=== PATIENT | male | born 1990 | race Caucasian/White ===

== ENCOUNTER 2019-09-12 19:31 | Emergency (ER) | payer OTHER, SELFPAY ==
[2019-09-12 19:44] VITALS: BP 161/102; PULSE 98; RESP 15; TEMP 36.6; O2SAT 97
--- NOTE | 2019-09-12 19:52 | ED.DENTAL ---
HPI - Dental/Oral General Chief complaint: Dental/Oral Stated complaint: tooth pain History of Present Illness HPI Narrative: The patient presents with some a dental pain with surrounding gum inflammation with a tender right submandibular gland with some right lower jaw tenderness, is painful and tender with some chewing, currently there is no fever chills no shortness of breath no nausea vomiting. MD Complaint: tooth pain Location: Tooth # Teeth map: 1. dental pain with gum inflammation Related Data Home Medications Medication Instructions Recorded Confirmed escitalopram oxalate 10 mg PO HS 03/11/19 09/12/19 quetiapine 300 mg PO HS 03/11/19 09/12/19 quetiapine 400 mg PO HS 03/11/19 09/12/19 trazodone 100 mg PO HS 03/11/19 09/12/19 Allergies Allergy/AdvReac Type Severity Reaction Status Date / Time No Known Allergies Allergy Unverified 11/16/14 11:20 Review of Systems Review of Systems: All systems reviewed & are unremarkable except as noted in HPI and below [facility] Past Medical History Medical History Depression Exam Const: General: no acute distress and alert Orientation/consciousness: patient oriented x3 HENMT: Head: normal to inspection Other: Left upper dental tenderness with palpation with surrounding gum inflammation Eyes: Conjunctivae: conjunctivae normal Pupils: Equal, round and reactive pupils present EOM: EOMs intact bilaterally Neck: Neck: normal visual inspection Chest: Chest palpation & inspection: normal inspection of the chest Resp: Effort & Inspection: normal respiratory effort Auscultation: clear to auscultation bilaterally Cardio: Rate: regular rate Rhythm: regular rhythm GI: Auscultation: normal bowel sounds Skin: General skin exam: normal color Rashes: no rashes Neuro: General: patient oriented x3 and moves all extremities Extrem: General: normal to inspection Psych: Mental Status: mental status grossly normal Course Vital Signs Vital signs: Vital Signs Temperature 36.6 C 09/12/19 19:44 Pulse Rate 98 09/12/19 19:44 Respiratory Rate 15 09/12/19 19:44 Blood Pressure 161/102 H 09/12/19 19:44 Pulse Oximetry 97 09/12/19 19:44 Temperature 36.6 C 09/12/19 19:44 Pulse Rate 98 05/18/20 19:44 Respiratory Rate 15 09/12/19 19:44 Blood Pressure 161/102 H 09/12/19 19:44 Pulse Oximetry 97 09/12/19 19:44 Critical Care Time Critical Care Time Critical Care Time: No Discharge Plan Discharge Clinical Impression: Dental abscess, Dental caries Patient Disposition: Home, Self-Care Condition: Stable Instructions: Antibiotic Form, Dental Abscess (ED) Additional Instructions: follow-up with dentist as soon as possible for further evaluation and treatment. Take medicine as prescribed. Prescriptions: New tramadol 50 mg tablet 50 mg PO Q6H PRN (Reason: pain) Qty: 20 RF: 0 amoxicillin 500 mg tablet 500 mg PO TID Qty: 30 RF: 0 No Action quetiapine 300 mg tablet 300 mg PO HS RF: 0 trazodone 100 mg tablet 100 mg PO HS RF: 0 escitalopram oxalate 10 mg tablet 10 mg PO HS RF: 0 quetiapine 400 mg tablet 400 mg PO HS RF: 0 Follow-up/Referrals: PHYSICIAN NOT ON STAFF,NONSTAFF [Primary Care Provider] - Stand Alone Forms: Work/School Release IP Time of Disposition: :57
[2019-09-12] MEDS: AMOXICILLIN 500 MG CAPSULE PO (19:54)
[2019-09-12] MEDS: TRAMADOL HCL 50 MG TABLET PO (19:54)
[2019-09-12 19:55] VITALS: RESP 14; O2SAT 100
== END 2019-09-12 19:58 | disposition home or self-care (01) ==
PROVIDERS: Emergency Provider Emergency Medicine
DX: K04.7 Periapical abscess without sinus (principal); K02.9 Dental caries, unspecified
CPT/HCPCS: 99283; A9270

== ENCOUNTER 2019-09-23 12:16 | Emergency (ER) | payer OTHER, SELFPAY ==
[2019-09-23 12:34] VITALS: BP 152/86; PULSE 117; RESP 18; TEMP 37.2; O2SAT 95
--- NOTE | 2019-09-23 12:58 | ED.WOUNDLAC ---
HPI - Wound/Laceration General Chief Complaint: Wound/Laceration Stated Complaint: cut on left arm Time Seen by Provider: 09/23/19 12:58 Source: patient Mode of arrival: ambulatory Limitations: no limitations History of Present Illness HPI narrative: 28-year-old man comes in today complaining of laceration of left forearm. Patient states that he was carrying branches and debris and thinks he scraped against the ladder. He states he has no numbness or tingling or weakness. He has not recall his last tetanus shot. Onset (ago): hour(s) (1) Extremity Location: Left: arm Place: home Patient tetanus UTD: No Context: accidental Associated symptoms: pain Treatments prior to arrival: bandage Related Data Home Medications Medication Instructions Recorded Confirmed escitalopram oxalate 10 mg PO HS 03/11/19 09/12/19 quetiapine 300 mg PO HS 03/11/19 09/12/19 quetiapine 400 mg PO HS 03/11/19 09/12/19 trazodone 100 mg PO HS 03/11/19 09/12/19 Allergies Allergy/AdvReac Type Severity Reaction Status Date / Time No Known Allergies Allergy Unverified 11/16/14 11:20 Review of Systems Constitutional: Constitutional: Denies chills, Denies fever(s) and Denies weakness Eyes: Eyes: Denies change in vision and Denies photophobia ENT: Denies dysphagia, Denies nasal congestion and Denies sore throat Cardiovascular: Cardiovascular: Denies chest pain and Denies radiating jaw, neck or arm pain Respiratory: Respiratory: Denies cough, Denies dyspnea and Denies wheezing Gastrointestinal: Gastrointestinal: Denies nausea and Denies vomiting Musculoskeletal: Musculoskeletal: Denies arthralgias, Denies joint swelling and Denies muscle cramps Integumentary/Breasts: Skin/Breast: Denies pruritus, Denies erythema and Denies rash Neurologic: Denies vertigo, Denies dizziness and Denies syncope Psychiatric: Psychiatric: Denies anxiety and Denies depression Hematologic/Lymphatic: Hematologic/Lymphatic: Denies easy bleeding and Denies easy bruising Allergic/Immunologic: Allergic/Immunologic: Denies lip swelling and Denies wheezing PMFSH Past Medical History Medical History Depression Social History Social History Tobacco type: e-cigarettes/vaping Alcohol intake: never Substance use: never Living arrangements: with family Exam Const: General: no acute distress and alert Nutritional Appearance: well nourished Orientation/consciousness: patient oriented x3 Eyes: Conjunctivae: conjunctivae normal Pupils: Equal, round and reactive pupils present EOM: EOMs intact bilaterally Resp: Effort & Inspection: normal respiratory effort and not labored Auscultation: clear to auscultation bilaterally, no rales, no rhonchi and no wheezes Cardio: Rate: regular rate Rhythm: regular rhythm Heart sounds: no murmurs Skin: General skin exam: normal color, no jaundice and no pallor Rashes: no rashes Other: 3 x 5 cm linear laceration which is partial thickness and gaping. Are several small (=/< 1 mm) black foreign bodies in the wound. Neuro: General: patient oriented x3, moves all extremities, no meningeal signs, no focal motor deficits and CN's II-XI intact bilaterally Speech: normal speech Extrem: General: normal to inspection and no clubbing, cyanosis or edema Psych: Appearance: grossly normal and well kempt Mental Status: mental status grossly normal Affect: normal affect Attitude: cooperative Course Vital Signs Vital signs: Vital Signs Temperature 37.2 C 09/23/19 12:34 Pulse Rate 117 H 09/23/19 12:34 Respiratory Rate 18 09/23/19 12:34 Blood Pressure 152/86 H 09/23/19 12:34 Pulse Oximetry 95 09/23/19 12:34 Temperature 37.2 C 09/23/19 12:34 Pulse Rate 117 H 09/23/19 12:34 Respiratory Rate 18 09/23/19 12:34 Blood Pressure 152/86 H 09/23/19 12:34 Pulse Oximetry 95 09/23/19 12:34
[2019-09-23] MEDS: TETANUS,DIPHTHERIA,AC PERTUSSIS ADULT 0.5 ML (ADACEL) IM (13:00)
== END 2019-09-23 13:37 | disposition home or self-care (01) ==
PROVIDERS: Emergency Provider Emergency Medicine
DX: S51.812A Laceration without foreign body of left forearm, initial encounter (principal)
CPT/HCPCS: 12002; 90471; 90715; 99282; 99283

== ENCOUNTER 2019-12-06 17:39 | Emergency (ER) | payer OTHER, SELFPAY ==
--- NOTE | ~2019-12-06 | XR_ITS ---
EXAMINATION: XR chest 1V portable EXAM DATE: 12/06/2019 18:33 INDICATION: Shortness of breath, wheezing. Allergic reaction. TECHNIQUE: Portable AP frontal chest x-ray was obtained. Comparison is made to prior examination from 03/11/2019. FINDINGS: The lungs are clear. There are no pleural effusions. The cardiomediastinal silhouette is within normal limits. There is no pneumothorax suspected. The bones and soft tissues are unremarkab le. IMPRESSION: Normal chest x-ray exam. Reviewed, dictated and finalized at location A. IMPRESSION: Normal chest x-ray exam.
[2019-12-06 17:53] VITALS: BP 130/31; PULSE 117; RESP 18; TEMP 37; O2SAT 98
[2019-12-06 17:58] VITALS: PULSE 107; RESP 22
[2019-12-06] MEDS: IPRATROPIUM 0.5 MG/ALBUTEROL SULFATE 2.5 MG AMPUL.NEB 3 ML (17:59)
[2019-12-06 18:05] VITALS: PULSE 112; RESP 22
--- NOTE | 2019-12-06 18:05 | ED.GENADULT ---
HPI - General Adult General Chief complaint: Allergic Reaction Stated complaint: trouble breathing Source: patient Mode of arrival: ambulatory Limitations: no limitations History of Present Illness HPI narrative: 29-year-old developed tightness and soreness in the back of his throat this morning. This is resolved but this afternoon he has developed tightness in his chest and wheezing. He had childhood asthma but no problems with wheezing since then. He developed a rash on his back, chest & abdomen yesterday which persists. It is minimally pruritic. He denies swelling of his lips or tongue. No nausea, vomiting, diarrhea or lightheadedness. No history of allergic reactions. He has had no recent exposures to unusual inhalants. Related Data Home Medications Medication Instructions Recorded Confirmed escitalopram oxalate 10 mg PO HS 03/11/19 12/06/19 quetiapine 300 mg PO HS 03/11/19 12/06/19 quetiapine 400 mg PO HS 03/11/19 12/06/19 trazodone 100 mg PO HS 03/11/19 12/06/19 Allergies Allergy/AdvReac Type Severity Reaction Status Date / Time No Known Allergies Allergy Unverified 11/16/14 11:20 Review of Systems Constitutional: Constitutional: Denies fever(s) ENT: Reports system reviewed and no additional complaints, except as documented and Denies nasal congestion Cardiovascular: Cardiovascular: Denies no additional cardiovascular complaints and Denies chest pain Respiratory: Respiratory: Reports cough and Reports dyspnea Gastrointestinal: Gastrointestinal: Reports no additional gastrointestinal complaints Musculoskeletal: Musculoskeletal: Reports no additional musculoskeletal complaints and Reports muscle cramps PMFSH Past Medical History Medical History (Updated 12/07/19 @ 05:19 by Tevin Grossman MD) Asthma Depression Social History Social History Tobacco type: e-cigarettes/vaping Alcohol intake: never Substance use: never Exam Const: General: no acute distress Orientation/consciousness: patient oriented x3 HENMT: Head: normal to inspection Ears: TM abnormal Face and sinus: normal facial exam Mouth: Yes moist mucous membranes Eyes: Conjunctivae: conjunctivae normal Neck: Neck: no lymphadenopathy Chest: Chest palpation & inspection: normal inspection of the chest Resp: Effort & Inspection: no use of accessory muscles Auscultation: wheezes and diminished lung sounds bilateral Cardio: Rate: regular rate Rhythm: regular rhythm GI: GI Palp: Yes Soft to palpation and No Tenderness to palpation present (GI) Skin: Other: maculpapular rash on anterior and posterior trunk only Arm or palm involvement. Neuro: General: patient oriented x3 Extrem: General: normal to inspection Course Course Emergency Course: Wheezing decreased with increased breath sounds after 2 neb treatment. D.C., isolate, no work until COVID test results return in 2 days. D.C. on albuterol MDI as well as budesonide inhaler. Reevaluation(s) Reevaluation #1: Breath sounds improved Date: 12/06/19 Time: 19:27 Vital Signs Vital signs: Vital Signs Temperature 37.0 C 12/06/19 17:53 Pulse Rate 117 H 12/06/19 17:53 Respiratory Rate 18 12/06/19 17:53 Blood Pressure 130/31 L 12/06/19 17:53 Pulse Oximetry 98 12/06/19 17:53 Temperature 37.0 C 12/06/19 17:53 Pulse Rate 118 H 12/06/19 19:09 Respiratory Rate 18 12/06/19 19:09 Blood Pressure 161/88 H 12/06/19 19:09 Pulse Oximetry 97 12/06/19 19:09 Medical Decision Making MDM Narrative Medical decision making narrative: Consider triggers of asthma: pneumonia, URI, inhalants, Covid19, GERD, allergies. In the context of symptoms precided by a rash, trigger is likely a virus. Vital Signs Vital Signs: Vital Signs Temperature 37.0 C 12/06/19 17:53 Pulse Rate 117 H 12/06/19 17:53 Respiratory Rate 18 12/06/19 17:53 Blood Pressure 130/31 L 12/06/19 17:5
--- NOTE | 2019-12-06 18:20 | ECG_ITS ---
Measurements Intervals [place] Rate: 107 P: 29 [place]: 134 QRS: 62 QRSD: 88 T: -12 QT: 321 QTc: 430 Interpretive Statements SINUS TACHYCARDIA MINIMAL Q WAVES- INFERIOR LEADS NONSPECIFIC T-WAVE ABNORMALITY- ANT/INF LEADS ABNORMAL ECG Electronically Signed On 12-06-2019 19:37:54 CDT by Ryan Mancia D.O.
[2019-12-06] MEDS: IPRATROPIUM 0.5 MG/ALBUTEROL SULFATE 2.5 MG AMPUL.NEB 3 ML INHALATION (18:39)
[2019-12-06 18:40] VITALS: PULSE 105; RESP 18
[2019-12-06 18:50] VITALS: PULSE 109; RESP 18
[2019-12-06 19:06] LABS: Partial Thromboplastin Time 27.4 SEC (22.3-31.6); Prothrombin Time 10.6 Seconds (9.64-11.0)
[2019-12-06 19:09] VITALS: BP 161/88; PULSE 118; RESP 18; O2SAT 97
[2019-12-06 19:13] LABS: D Dimer 0.25 mg/L (0.19-0.50); White Blood Count 9.3 K/mm3 (4.8-10.8)
[2019-12-06 19:13] LABS: Influenza Control Valid (Valid)
[2019-12-06 19:14] LABS: Hematocrit 43.3 % (40.0-54.0); Hemoglobin 15.1 g/dL (14.0-18.0); Immature Granulocyte Percent A 0.9 % (0.0-0.0); Lymphocytes Percent Auto 34.5 % (18.0-42.0); Mean Corpuscular HGB Conc 34.9 g/dL (32.0-36.0); Mean Corpuscular Hemoglobin 29.6 pg (27.0-31.0); Mean Corpuscular Volume 84.9 fL (78.0-102.0); Mean Platelet Volume 9.5 fl (8.7-11.0); Neutrophils Percent Auto 53.4 % (50.0-70.0); Platelet Count Result 273 K/mm3 (150-420); Red Cell Distribution Width 12.4 % (11.6-14.4)
[2019-12-06 19:15] LABS: Alanine Aminotransferase 95 U/L (16-63); Albumin Level 4.4 g/dL (3.4-5.0); Alkaline Phosphatase 83 U/L (46-116); Anion Gap 10 mmol/L (8-16); Aspartate Amino Transferase 53 U/L (15-37); Basophils Absolute Auto 0.02 K/mm3 (0.00-0.10); Basophils Percent Auto 0.2 % (0.0-1.0); Blood Urea Nitrogen 13 mg/dL (7-18); Calcium 9.6 mg/dL (8.5-10.1); Carbon Dioxide 26 mmol/L (21-32); Chloride 101 mmol/L (98-108); Eosinophils Absolute Auto 0.07 K/mm3 (0.02-0.50); Eosinophils Percent Auto 0.8 % (1.0-6.0); Estimated CRCL calculation 89 ml/min; Estimated Glomerular Filt Rate > 60; Glucose 95 mg/dL (70-99); Immature Granulocyte Absolute 0.08 K/mm3 (0.00-0.00); Monocytes Absolute Auto 0.95 K/mm3 (0.10-0.90); Monocytes Percent Auto 10.2 % (2.0-11.0); Osmolality Calculated 284 mOsm/kg (285-295); Potassium 3.8 mmol/L (3.5-5.1); Sodium 137 mmol/L (136-145); Total Protein 8.7 g/dL (6.4-8.2)
[2019-12-06 19:16] LABS: CRP 1.9 mg/dL (0.0-0.9); Ferritin 210 ng/mL (26-388)
[2019-12-06 19:51] LABS: Erythrocyte Sedimentation Rate 10 mm/hr (0-15)
[2019-12-07 22:50] LABS: SARS-CoV-2 RNA PCR Negative
== END 2019-12-06 19:44 | disposition home or self-care (01) ==
PROVIDERS: Emergency Provider Family Medicine
DX: R06.2 Wheezing (principal); R21 Rash and other nonspecific skin eruption
CPT/HCPCS: 36415; 71045; 80053; 82728; 85025; 85380; 85610; 85652; 85730; 86140; 87635; 87804; 93005; 94640; 99283; C9803; U0003

== ENCOUNTER 2019-12-20 06:04 | Emergency (ER) | payer OTHER, SELFPAY ==
[2019-12-20 06:23] VITALS: BP 137/87; PULSE 77; RESP 20; TEMP 36.2; O2SAT 96
--- NOTE | 2019-12-20 06:36 | ED.GENADULT ---
HPI - General Adult General Chief complaint: Nausea/Vomiting/Diarrhea Stated complaint: motion sickness hot and cold chills lower back jb Time Seen by Provider: 12/20/19 06:36 History of Present Illness HPI narrative: 29-year-old male patient is here with chief complaints of experiencing some withdrawal symptoms from not having use Seroquel for the last 245 days. Patient states that he was taking 700 mg of Seroquel at nighttime and ran out of the medication 6 days ago and his experience symptoms of flow vomiting everything that he eats. Patient states that he is not able to see the physician that was prescribing him the medications and he has not been able to find 1 locally. He is also supposed to take trazodone and Lexapro he states that he has those medications but he does not take it because he does not think that trazodone helps him. He does suffer from insomnia. States that he has been unable to keep any liquids down for the last couple of days. He denies any abdominal pain diarrhea or cramping. He denies any sweating. He denies any palpitations . Related Data Home Medications Medication Instructions Recorded Confirmed quetiapine 300 mg PO HS 03/11/19 12/20/19 quetiapine 400 mg PO HS 03/11/19 12/20/19 Allergies Allergy/AdvReac Type Severity Reaction Status Date / Time No Known Allergies Allergy Unverified 11/16/14 11:20 Review of Systems Review of Systems: All systems reviewed & are unremarkable except as noted in HPI and below PMFSH Past Medical History Medical History Asthma Depression Social History Social History Tobacco type: e-cigarettes/vaping Alcohol intake: never Substance use: never Exam Const: General: healthy appearing, no acute distress and alert Nutritional Appearance: well nourished Orientation/consciousness: patient oriented x3 HENMT: Head: normal to inspection Mouth: Yes Normal oral and palatal mucosa present and Yes moist mucous membranes Eyes: Conjunctivae: conjunctivae normal Pupils: Equal, round and reactive pupils present EOM: EOMs intact bilaterally Neck: Neck: normal visual inspection Chest: Chest palpation & inspection: normal inspection of the chest Resp: Effort & Inspection: normal respiratory effort Auscultation: clear to auscultation bilaterally Cardio: Rate: regular rate Rhythm: regular rhythm GI: GI Palp: Yes Soft to palpation, No Tenderness to palpation present (GI), No Guarding due to palpation present (GI), No Rigid due to palpation and No Hernia present : General: Yes no CVA tenderness Skin: General skin exam: normal color, no jaundice and no pallor Rashes: no rashes Wounds: wound noted Neuro: General: patient oriented x3, moves all extremities, no focal motor deficits and CN's II-XI intact bilaterally Cranial nerves: Yes Nystagmus not present Speech: normal speech Gait exam (Neuro): Normal gait present Extrem: General: normal to inspection Psych: Mental Status: mental status grossly normal Affect: normal affect Thought content: Yes Normal thought content present Course Course Emergency Course: Patient has no nausea or vomiting while he is in the ER. His resting comfortably and awaiting the lab results. His basic labs are still pending. He is aware that he will get a prescription for 300 mg of Seroquel for 1 week at nighttime and he is advised to follow up with the primary care physician here locally. a physician referral sheet will be provided to the patient Vital Signs Vital signs: Vital Signs Temperature 36.2 C L 12/20/19 06:23 Pulse Rate 77 12/20/19 06:23 Respiratory Rate 12/20/19 06:23 Blood Pressure 137/87 12/20/19 06:23 Pulse Oximetry 96 12/20/19 06:23 Temperature 36.2 C L 12/20/19 06:23 Pulse Rate 77 12/20/19 06:23 Respiratory Rate 20 12/20/19 06:23 Blood Pressure 137/87 12/20/19 06:
[2019-12-20 06:41] LABS: Hematocrit 47.4 % (40.0-54.0); Hemoglobin 16.6 g/dL (14.0-18.0); Mean Corpuscular Hemoglobin 29.9 pg (27.0-31.0); Mean Corpuscular Volume 85.3 fL (78.0-102.0); Mean Platelet Volume 9.4 fl (8.7-11.0); Platelet Count Result 332 K/mm3 (150-420); Red Blood Count 5.56 M/mm3 (4.70-6.10); Red Cell Distribution Width 12.5 % (11.6-14.4); White Blood Count 10.8 K/mm3 (4.8-10.8)
[2019-12-20 06:42] LABS: Add Urine Microscopic? NO; Appearance Urine Clear (Clear); Bilirubin Urine Negative (Negative); Blood Urine Negative (Negative); Color Urine Yellow (Yellow); Glucose Urine UA Negative (Negative); Ketones Urine Negative (Negative); Leukocyte Esterase Ur Negative LEU/UL (Negative); Nitrate Urine Negative (Negative); Protein Urine Negative (Negative); Specific Grav Ur 1.025 (1.010-1.020); Urobilinogen Urine 0.2 mg/dL (0.2-1.0); pH Urine 5.5 (5.0-8.0)
[2019-12-20 06:58] LABS: Amphetamine Screen Urine Negative (Negative); Barbiturate Screen Urine Negative (Negative); Benzodiazepines Screen Urine Negative (Negative); Cannabinoid Screen Urine Negative (Negative); Cocaine Screen Urine Negative (Negative); Methadone Screen Urine Negative (Negative); Opiate Screen Urine Negative (Negative); Phencyclidine Screen Urine Negative (Negative)
[2019-12-20 06:58] LABS: Alanine Aminotransferase 78 U/L (16-63); Albumin Level 4.1 g/dL (3.4-5.0); Alkaline Phosphatase 81 U/L (46-116); Anion Gap 10 mmol/L (8-16); Aspartate Amino Transferase 42 U/L (15-37); Bilirubin,Total 0.9 mg/dL (0.00-1.00); Blood Urea Nitrogen 9 mg/dL (7-18); Calcium 9.1 mg/dL (8.5-10.1); Carbon Dioxide 25 mmol/L (21-32); Chloride 101 mmol/L (98-108); Estimated CRCL calculation 94 ml/min; Estimated Glomerular Filt Rate > 60; Glucose 104 mg/dL (70-99); Osmolality Calculated 280 mOsm/kg (285-295); Potassium 3.9 mmol/L (3.5-5.1); Sodium 136 mmol/L (136-145); Total Protein 8.4 g/dL (6.4-8.2)
[2019-12-20] MEDS: ONDANSETRON HCL ODT 4 MG TABLET PO (07:01)
[2019-12-20 07:09] VITALS: BP 134/87; PULSE 78; RESP 20; TEMP 36.2; O2SAT 98
== END 2019-12-20 07:16 | disposition home or self-care (01) ==
PROVIDERS: Emergency Provider Emergency Medicine
DX: F32.9 Major depressive disorder, single episode, unspecified (principal); F19.939 Other psychoactive substance use, unspecified with withdrawal, unspecified; R11.10 Vomiting, unspecified
CPT/HCPCS: 36415; 80053; 80307; 81003; 85027; 99283; A9270

== ENCOUNTER 2020-07-09 09:42 | Outpatient (CLI) | payer OTHER, SELFPAY ==
--- NOTE | 2020-07-09 09:44 | ECG_ITS ---
Measurements Intervals [place] Rate: 103 P: 56 [place]: 145 QRS: 65 QRSD: 87 T: 16 QT: 308 QTc: 405 Interpretive Statements SINUS TACHYCARDIA NONSPECIFIC T-WAVE ABNORMALITY- INFERIOR LEADS BORDERLINE ECG Electronically Signed On 07-09-2020 10:53:47 CDT by Ryan Mancia D.O.
== END 2020-07-09 09:43 | disposition home or self-care (01) ==
LOC: CHSCARD 09:44
PROVIDERS: PCP Family Medicine; Visit Provider Family Medicine
DX: G47.00 Insomnia, unspecified (principal); F39 Unspecified mood [affective] disorder
CPT/HCPCS: 93005

== ENCOUNTER 2020-11-15 09:14 | Outpatient (CLI) | payer OTHER, SELFPAY ==
[2020-11-15 10:13] LABS: SARS-CoV-2 RNA PCR Positive (Negative)
== END 2020-11-15 09:15 | disposition home or self-care (01) ==
PROVIDERS: PCP Family Medicine; Visit Provider Family Medicine
DX: U07.1 COVID-19 (principal)
CPT/HCPCS: C9803; U0003; U0005

== ENCOUNTER 2021-08-14 12:33 | Emergency (ER) | payer OTHER, SELFPAY ==
[2021-08-14 12:49] VITALS: BP 146/97; PULSE 84; RESP 16; TEMP 36.7; O2SAT 94
--- NOTE | 2021-08-14 13:17 | ED.GENADULT ---
HPI - General Adult General Chief complaint: Unspecified Stated complaint: SORE THROAT Time Seen by Provider: 08/14/21 12:35 Source: patient and RN notes reviewed Mode of arrival: ambulatory Limitations: no limitations History of Present Illness Onset (ago): week(s) (2) Location: head and neck Severity: mild Severity scale (1-10): 3 Quality: aching and dull Pain Consistency: constant Relieving factors: none Exacerbating factors: none Associated symptoms: denies other symptoms Related Data Allergies Allergy/AdvReac Type Severity Reaction Status Date / Time No Known Allergies Allergy Verified 08/06/21 07:34 Review of Systems Review of Systems: All systems reviewed & are unremarkable except as noted in HPI and below PMFSH Past Medical History Medical History Asthma Depression Mood disorder Pharyngitis Surgical History Surgical History No history of previous surgery Social History Social History Tobacco type: e-cigarettes/vaping Alcohol intake: never Substance use: never Exam Const: General: cooperative, healthy appearing, no acute distress and well developed Nutritional Appearance: well nourished Orientation/consciousness: patient oriented x3 Limitations: no limitations HENMT: Head: normal to inspection, normocephalic and atraumatic Ears: hearing grossly normal bilaterally, external ears normal, TM's normal bilaterally and EAC's normal General nose exam: Normal external nose present and Normal nares present Face and sinus: normal facial exam and sinuses nontender Mouth: Yes Normal oral and palatal mucosa present, Yes lip normal, Yes tongue normal, Yes oropharynx normal and Yes moist mucous membranes Throat: posterior oropharynx normal Eyes: General: appearance normal, both eyes and all related structures Visual Ruth: normal visual ruth by confrontation Alignment and Position: alignment normal Periorbital: periorbital findings normal Eyelids: eyelids normal Conjunctivae: conjunctivae normal Sclera: sclerae normal Cornea: corneas normal Pupils: Equal, round and reactive pupils present EOM: EOMs intact bilaterally Direct Ophthalmoscopy: normal light reflex Neck: Neck: normal visual inspection, full ROM, no lymphadenopathy, no meningeal signs and trachea midline Chest: Chest palpation & inspection: normal inspection of the chest Resp: Effort & Inspection: normal respiratory effort and able to speak in complete sentences Auscultation: clear to auscultation bilaterally Cardio: Jugular venous distension: no JVD Rate: regular rate Rhythm: regular rhythm Peripheral pulses: Peripheral pulses 2+ throughout GI: Inspection: normal to inspection GI Palp: No abdominal tenderness Auscultation: normal bowel sounds : General: Yes no CVA tenderness Back/Spine/Pelvis: Back: no CVA tenderness Cervical Spine: cervical ROM normal Thoracic/Lumbar Spine: thoraco-lumbar ROM normal Skin: General skin exam: normal color Neuro: General: oriented to person, oriented to place, oriented to time, gait normal, no meningeal signs, no focal motor deficits and CN's II-XI intact bilaterally Cranial nerves: Yes CN's II-XII intact bilaterally, Yes Facial sensation intact/muscles of mastication intact, Yes Intact sense of smell present, Yes Equal, round and reactive pupils present, Yes Normal accommodation reflex present and Yes Bilaterally intact EOM present Cognition (Neuro): normal cognition Speech: normal speech Gait exam (Neuro): Normal gait present Motor exam (neuro): 5/5 motor strength present throughout Extrem: General: normal to inspection, full ROM, capillary refill normal, normal exam except as noted, no pedal edema and no calf tenderness Psych: Appearance: grossly normal and well kempt Speech and movement: Normal speech and movement presen
[2021-08-14] MEDS: ACETAMINOPHEN 325 MG TABLET 650 MG PO (13:22)
[2021-08-14 13:24] VITALS: BP 146/97; PULSE 84; RESP 16; TEMP 36.7; O2SAT 94
== END 2021-08-14 13:28 | disposition home or self-care (01) ==
PROVIDERS: Emergency Provider Emergency Medicine; PCP Family Medicine
DX: J02.9 Acute pharyngitis, unspecified (principal)
CPT/HCPCS: 87081; 87880; 99283; A9270

== ENCOUNTER 2021-11-20 15:25 | Emergency (ER) | payer OTHER, SELFPAY ==
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
[2021-11-20] MEDS: ONDANSETRON HCL ODT 4 MG TABLET PO (15:54)
[2021-11-20] MEDS: HYDROmorphone HCL INJ (*CRX) 2 MG/ML VIAL 1 MG IM (15:55)
[2021-11-20] MEDS: TETANUS,DIPHTHERIA,AC PERTUSSIS ADULT 0.5 ML (ADACEL) IM (15:57)
[2021-11-20 16:08] VITALS: BP 142/102; PULSE 99; RESP 20; TEMP 36.7; O2SAT 98
[2021-11-20] MEDS: SILVER SULFADIAZINE 1% CR 50 GM JAR (*BKC) 1 APPLIC TOPICAL (16:23)
[2021-11-20 16:47] VITALS: BP 153/104; PULSE 83; RESP 20; TEMP 36.7; O2SAT 98
== END 2021-11-20 17:00 | disposition home or self-care (01) ==
PROVIDERS: Emergency Provider Internal Medicine Critical Care Medicine; PCP Family Medicine
DX: T30.0 Burn of unspecified body region, unspecified degree (principal); X08.8XXA Exposure to other specified smoke, fire and flames, initial encounter
CPT/HCPCS: 90471; 90715; 96372; 99283; A9270; J1170

== ENCOUNTER 2023-12-26 13:38 | Emergency (ER) | payer OTHER, SELFPAY ==
[2023-12-26 13:39] VITALS: BP 155/98; PULSE 128; RESP 20; TEMP 38.3; O2SAT 97
[2023-12-26 13:55] VITALS: O2SAT 97
[2023-12-26 14:21] LABS: SARS-CoV-2 RNA PCR Negative (Negative)
--- NOTE | 2023-12-26 14:23 | ED.FEVER ---
HPI - Fever General Chief Complaint: Upper Respiratory Infection Stated Complaint: fever Time Seen by Provider: 12/26/23 13:40 Source: patient Mode of arrival: ambulatory Limitations: no limitations History of Present Illness HPI Narrative: this is a 33-year-old male who presents with some fever and body aches with headache started 2 days ago with some mild cough nonproductive with no shortness of breath. Denies any chest pain no diarrhea constipation or abdominal pain. MD elicited complaint: fever Onset (ago): day(s) Context: sick contacts Related Data Allergies Allergy/AdvReac Type Severity Reaction Status Date / Time No Known Allergies Allergy Verified 12/26/23 13:56 Review of Systems Review of Systems: All systems reviewed & are unremarkable except as noted in HPI and below PMFSH Past Medical History Medical History Asthma Depression Mood disorder Pharyngitis Surgical History Surgical History No history of previous surgery Social History Social History Smoking status: Current every day smoker Tobacco type: e-cigarettes/vaping Alcohol intake: never Substance use: never Lack of Transportation: No Lack of Food: Sometimes True Current Housing: I Have Housing Concerned About Future Housing: No Difficulty Paying Gas/Electric Bills: No Difficulty Paying for Meds: No Currently Unemployed: No Education: High School Diploma/GED Difficulty w/ Childcare or Family Care: No Living arrangements: with family Exam Const: General: healthy appearing Nutritional Appearance: well nourished Orientation/consciousness: patient oriented x3 Limitations: no limitations Neck: Neck: normal visual inspection, no lymphadenopathy and no meningeal signs Chest: Chest palpation & inspection: normal inspection of the chest Resp: Effort & Inspection: normal respiratory effort Auscultation: clear to auscultation bilaterally Cardio: Rate: tachycardic Rhythm: regular rhythm GI: GI Palp: Yes Soft to palpation Auscultation: normal bowel sounds Skin: General skin exam: normal color Rashes: no rashes Neuro: General: patient oriented x3, moves all extremities and no meningeal signs Course TRIM LINE WORKER/PA Physician Supervision Patient received a g p.o. and COVID influenza RSV performed and reviewed and negative Vital Signs Vital signs: Vital Signs Temperature 38.3 C H 12/26/23 13:39 Pulse Rate 128 H 12/26/23 13:39 Respiratory Rate 20 12/26/23 13:39 Blood Pressure 155/98 H 12/26/23 13:39 Pulse Oximetry 97 12/26/23 13:39 Oxygen Delivery Room Air 12/26/23 13:39 Temperature 38.3 C H 12/26/23 13:39 Pulse Rate 128 H 12/26/23 13:39 Respiratory Rate 20 12/26/23 13:39 Blood Pressure 155/98 H 12/26/23 13:39 Pulse Oximetry 97 12/26/23 13:55 Oxygen Delivery Room Air 12/26/23 13:55 MDM - Fever Lab Data Labs: Lab Results 12/26/23 Range/Units 13:40 Influenza A (RT-PCR) Pending Influenza B (RT-PCR) Pending RSV (RT-PCR) Pending SARS-CoV-2 RNA (RT-PCR) Pending Critical Care Time Critical Care Time Critical Care Time: No Discharge Plan Discharge Clinical Impression: Viral infection Patient Disposition: Home, Self-Care Condition: Stable Instructions: Antibiotic Form, Viral Syndrome (ED) Additional Instructions: advised to get rest drink plenty of fluids and take Tylenol or Motrin. Follow up primary if symptoms persist or worsen. Prescriptions: No Action alprazolam 2 mg tablet 2 mg PO TID PRN (Reason: anxiety) Qty: 20 2RF sertraline 100 mg tablet See Rx Instructions .ROUTE .COMPLEX Qty: 90 3RF Dose Instruction: TAKE 2 TABLETS BY MOUTH EVERY DAY Rx Instructions: TAKE 2 TABLETS BY MOUTH EVERY DAY cyclobenzaprine 10 mg tablet
[2023-12-26] MEDS: ACETAMINOPHEN 500 MG TABLET 1000 MG PO (14:28)
[2023-12-26 14:47] LABS: Influenza A QL RT-PCR Negative (Negative); Influenza B QL RT-PCR Negative (Negative); RSV RNA, RT-PCR Negative (Negative)
[2023-12-26 15:01] VITALS: BP 148/88; PULSE 110; RESP 20; TEMP 37.2; O2SAT 97
== END 2023-12-26 15:03 | disposition home or self-care (01) ==
PROVIDERS: Emergency Provider Emergency Medicine; PCP Family Medicine
DX: B34.9 Viral infection, unspecified (principal); F17.290 Nicotine dependence, other tobacco product, uncomplicated; Z20.822 Contact with and (suspected) exposure to COVID-19
CPT/HCPCS: 87637; 99283

== ENCOUNTER 2023-12-31 13:49 | Emergency (ER) | payer OTHER, SELFPAY ==
[2023-12-31 13:49] VITALS: BP 165/98; PULSE 98; RESP 16; TEMP 36.1; O2SAT 97
--- NOTE | 2023-12-31 14:44 | ED.WOUNDLAC ---
HPI - Wound/Laceration General Chief Complaint: Wound/Laceration Stated Complaint: hand lac Time Seen by Provider: 12/31/23 13:56 Source: patient Mode of arrival: ambulatory Limitations: no limitations History of Present Illness HPI narrative: 33-year-old male that presents with a laceration to his left thumb area that occurred earlier today is gaping approximately 3cm in length with no bleeding up-to-date with his tetanus no redness no drainage. Onset (ago): hour(s) Place: home Patient tetanus UTD: Yes Context: accidental Related Data Allergies Allergy/AdvReac Type Severity Reaction Status Date / Time No Known Allergies Allergy Verified 12/31/23 14:06 Review of Systems Review of Systems: All systems reviewed & are unremarkable except as noted in HPI and below PMFSH Past Medical History Medical History Asthma Depression Mood disorder Pharyngitis Surgical History Surgical History No history of previous surgery Social History Social History Smoking status: Current every day smoker Tobacco type: e-cigarettes/vaping Alcohol intake: never Substance use: never Lack of Transportation: No Lack of Food: Sometimes True Current Housing: I Have Housing Concerned About Future Housing: No Difficulty Paying Gas/Electric Bills: No Difficulty Paying for Meds: No Currently Unemployed: No Education: High School Diploma/GED Difficulty w/ Childcare or Family Care: No Living arrangements: with family Exam Const: General: healthy appearing Nutritional Appearance: well nourished Orientation/consciousness: patient oriented x3 Limitations: no limitations Neck: Neck: normal visual inspection and no lymphadenopathy Chest: Chest palpation & inspection: normal inspection of the chest Resp: Effort & Inspection: normal respiratory effort Auscultation: clear to auscultation bilaterally Cardio: Rate: regular rate Rhythm: regular rhythm GI: GI Palp: Yes Soft to palpation Skin: Rashes: no rashes Wounds: wounds noted Neuro: General: patient oriented x3 and moves all extremities Course Course Emergency Course: Patient received a shot of Toradol IM patient is up-to-date with his tetanus sutures placed patient tolerated procedure well. Vital Signs Vital signs: Vital Signs Temperature 36.1 C L 12/31/23 13:49 Pulse Rate 98 12/31/23 13:49 Respiratory Rate 16 12/31/23 13:49 Blood Pressure 165/98 H 12/31/23 13:49 Pulse Oximetry 97 12/31/23 13:49 Oxygen Delivery Room Air 12/31/23 13:49 Temperature 36.1 C L 12/31/23 13:49 Pulse Rate 98 12/31/23 13:49 Respiratory Rate 16 12/31/23 13:49 Blood Pressure 165/98 H 12/31/23 13:49 Pulse Oximetry 97 12/31/23 13:49 Oxygen Delivery Room Air 12/31/23 13:49 Procedures Laceration Laceration 1: Date: 12/31/23 Time: 14:47 Site: upper extremity Side (If applicable): left Size (cm): 3 Description: linear Depth: simple, single layer Local Anesthetic: lidocaine 1% Amount of anesthesia used (mL): 5 Pre-repair: wound explored and irrigated ====== Skin Level ====== Skin layer closed with: nylon Size (cm): 3-0 Number of sutures: 5 ====== Subcutaneous Layer ====== ====== Muscle Layer ====== ====== Tendon Layer ====== Critical Care Time Critical Care Time Critical Care Time: No Discharge Plan Discharge Clinical Impression: Laceration Patient Disposition: Home, Self-Care Condition: Stable Instructions: Antibiotic Form, Laceration (ED) Additional Instructions: Advise follow-up with Primary 1 week for suture removal. Prescriptions: New ProAir RespiClick 90 mcg/actuation aerosol powdr breath activated 2 inh inhalation Q
[2023-12-31 14:59] VITALS: BP 165/98; PULSE 96; RESP 17; TEMP 36.5; O2SAT 98
== END 2023-12-31 14:59 | disposition home or self-care (01) ==
PROVIDERS: Emergency Provider Emergency Medicine; PCP Family Medicine
DX: S61.412A Laceration without foreign body of left hand, initial encounter (principal); F17.290 Nicotine dependence, other tobacco product, uncomplicated; W45.8XXA Other foreign body or object entering through skin, initial encounter
CPT/HCPCS: 12002; 99283

== ENCOUNTER 2024-06-10 11:07 | Outpatient (CLI) | payer OTHER, SELFPAY ==
--- NOTE | ~2024-06-10 | XR_ITS ---
HISTORY: Rt. knee pain x3 months, NKI COMPARISON: None TECHNIQUE: Right knee were performed FINDINGS: No acute or subacute fracture. Medial and lateral tibiofemoral joint space narrowing is identified. No suprapatellar joint effusion is identified. The infrapatellar joint space is clear. IMPRESSION: Degenerative disease, without acute fracture. Reviewed, dictated and finalized at location A. ANGE CLERK
--- OUTSIDE RECORDS SUMMARY | 2024-06-10 11:20 | XMS_ITS | Clinical Summary ---
Author Organization [facility] Address [address] [place] [address] Phone Care Team Providers Care Sizer Machine Name Role Phone Provider, None Primary Care Provider Unavailabl e Allergies No known active allergies Medications QUEtiapine Fumarate (SEROQUEL PO) Take 300 mg by mouth. Active traZODone (DESYREL) 100 MG Tablet Take 100 mg by mouth nightly. Active escitalopram (LEXAPRO) 10 MG Tablet Take 10 mg by mouth daily. Active Active Problems No known active problems Immunizations Immunization Administration Dates Next Due Pneumococcal Vaccine Adult - 23 Valent 8 TDAP Vaccine 02/01/2017,04/27/2007 Family History Medical History Relation Name Comments Cancer Paternal Grandfather Cancer Paternal Grandmother Relation Name Status Comments Paternal Grandfather Paternal Grandmother Social History Tobacco Use Types Packs/Day Years Used Date Smoking Tobacco: Never Cigarettes Smokeless Tobacco: Current Tobacco Cessation:Ready to Q uit: No; Counseling Given: Yes Alcohol Use Standard Drinks/Week Comments Yes 0 (1 standard drink = 0.6 oz pur e alcohol) Sexually Active Control Partners Comments Yes Sex and Gender Information Value Date Recorded Sex Assigned at Not on file Legal Sex Male 8:10 PM CDT Gender Identity Not on file Sexual Orientation Not on file Last Filed Vital Signs Vital Sign Reading Time Taken Comments Blood Pressure 152/96 11/20/2018 11:27 PM CDT Pulse 84 11/20/2018 11:27 PM CDT Temperature 36.9 C (98.4 F) 11/20/2018 9:53 PM CDT Respiratory Rate 16 11/20/2018 11:27 PM CDT Oxygen Saturation 98% 11/20/2018 11:27 PM CDT Inhaled Oxygen Concentration - - Weight 72.6 kg (160 lb) 11/20/2018 9:53 PM CDT Height 177.8 cm (5' 10 ) 11/20/2018 9:53 PM CDT Body Mass Index 22.96 11/20/2018 9:53 PM CDT Plan of Treatment Health Maintenance Due Date Last Done Comments Hepatitis B Immunization (1 of 3 - 19+ 3-dose series) 11/10/2010 Influenza Immunization (#1) 2023 SARS-COV-2 Immunization ( - 2023- season) 2023 Td Immunization Every 10 Yea rs (Adults With 1 Tdap) 02/01/2027 02/01/2017, 04/27/2007 Respiratory Syncytial Virus (RSV) Immunization (Adult) (1 - 1-dose 75+ series) 11/10/2066 Pneumococcal Immunization Combined Aged Out 07/14/2017 No longer eligible b ased on patient's age to complete this topic Hepatitis C Virus (HCV) Screening Completed 03/14/2019 Meningococcal Immunization (ACWY) Aged Out No longer eligible b ased on patient's age to complete this topic Rotavirus Immunization Aged Out No lo nger eligible based on patient's age to complete this topic Insurance MEDICAID [employer] Care Teams Sizer Machine Relationship Specialty Start Date End Date Provider, None [place] PCP - General 03/22/21
--- OUTSIDE RECORDS SUMMARY | 2024-06-10 11:20 | XMS_ITS | Clinical Summary ---
Author Organization [facility] Address [address] [place] [address] Care Team Providers Care Mid Level Project Manager Name Role Phone James Mendes DO Primary Care Provider Allergies No known active allergies Medications escitalopram 10 MG tablet Take 10 mg by mouth daily. 1 03/07/2019 Active QUEtiapine 400 MG tablet Take 1 tablet (400 mg total) by mouth nightly at bedtime. 30 tablet 2 03/15/2019 Active Active Problems Problem Noted Date Diagnosed Date Overdose 03/11/2019 Immunizations Name Administration Dates Next Due Afluria 36 MONTHS+ (Prefille d Syringe IIV4) 03/15/2019(Deferred: Patient/family declined) Social History Tobacco Use Types Packs/Day Years Used Date Smoking Tobacco: Never Smokeless Tobacco: Never Tobacco Cessation:Counseling Given: Not Answered Alcohol Use Standard Drinks/Week Comments Never 0 (1 standard drink = 0.6 oz pur e alcohol) Sex and Gender Information Value Date Recorded Sex Assigned at Not on file Legal Sex Male 9:14 PM PATIENT SCHEDULING COORDINATOR Gender Identity Not on file Sexual Orientation Not on file Last Filed Vital Signs Vital Sign Reading Time Taken Comments Blood Pressure 181/102 03/05/2023 9:05 AM PATIENT SCHEDULING COORDINATOR Pulse 101 03/05/2023 9:05 AM PATIENT SCHEDULING COORDINATOR Temperature 36.7 C (98.1 F) 03/05/2023 9:05 AM PATIENT SCHEDULING COORDINATOR Respiratory Rate 18 03/05/2023 9:05 AM PATIENT SCHEDULING COORDINATOR Oxygen Saturation 96% 03/05/2023 9:05 AM PATIENT SCHEDULING COORDINATOR Inhaled Oxygen Concentration - - Weight 82.5 kg (181 lb 14.1 oz) 03/05/2023 9:33 AM PATIENT SCHEDULING COORDINATOR Height 180.3 cm (5' 11 ) 03/05/2023 9:33 AM PATIENT SCHEDULING COORDINATOR Body Mass Index 25.37 03/05/2023 9:33 AM PATIENT SCHEDULING COORDINATOR Plan of Treatment Health Maintenance Due Date Last Done Comments Annual Physical 11/10/1994 Hepatitis B Vaccines (1 of 3 - 19+ 3-dose series) 11/10/2010 COVID-19 Vaccine (2023-2 5 season) 2023 Influenza Adult (#1) 2024 DTaP, Tdap and Td Vaccines ( 3 - Td or Tdap) 02/01/2027 02/01/2017, 04/27/2007 Pneumococcal Vaccine: Pediatrics (0 to 5 Years) and At-Risk Patients (6 to 64 Years) Aged Out 07/14/2017 No longer eligible b ased on patient's age to complete this topic Hepatitis C Completed 03/14/2019 HPV Vaccines Aged Out No longer eligi ble based on patient's age to complete this topic Meningococcal B Vaccine Aged Out No l onger eligible based on patient's age to complete this topic Meningococcal Vaccine Aged Out No [place]cho [place] eligible based on patient's age to complete this topic RSV Immunizations Under 20 Months Aged Out No longer eligible b ased on patient's age to complete this topic Procedures Procedure Name Priority Date/Time Associated Diagnosis Comments HEPATITIS C ANTIBODY Routine 03/14/2019 3:06 PM PATIENT SCHEDULING COORDINATOR from Last 3 Months or Most Recently Relevant to Health Maintenance Results * HEPATITIS C ANTIBODY (03/14/2019 3:06 PM PATIENT SCHEDULING COORDINATOR) HEPATITIS C AB NON-REACTI VE NON-REACT ENID 03/14/2019 9:21 PM PATIENT SCHEDULING COORDINATOR [facility] Comment: ANTIBODIES TO HCV NOT DETECTED. DOES NOT EXCLUDE THE POSSIBILITY OF EXPOSURE TO HCV. 03/14/2019 3:06 PM PATIENT SCHEDULING COORDINATOR Andrew Virgen MD LABORATORY Final Result [facility] [address] [place] [address], [id number] from Last 3 Months or Most Recently Relevant to Health Maintenance Insurance [facility] Advance Directives * Full Code (Latest Code Status on File) Date Activated Date Inactivated Comments 03/11/2019 11:24 PM 03/15/2019 4:08 PM Care Teams Mid Level Project Manager Relationship Specialty Start Date End Date James Mendes DO [address] [place] [address] PCP - General FAMILY PRACTICE 03/05/23
== END 2024-06-10 11:08 | disposition home or self-care (01) ==
LOC: CHSIMG 11:08
PROVIDERS: PCP Family Medicine; Visit Provider Family Medicine
DX: M25.561 Pain in right knee (principal)
CPT/HCPCS: 73564